=== PATIENT | male | born 1965 | race Caucasian/White ===

== ENCOUNTER → 2016-07-26 | Outpatient (CLI) | payer BC ==
--- NOTE | 2016-07-26 15:49 | XR ---
EXAMINATION TYPE: XR hand complete RT DATE OF EXAM: 07/26/2016 3:44 PM COMPARISON: NONE HISTORY: Posttraumatic osteoarthritis chronic pain third metacarpal phalangeal joint TECHNIQUE: 3 views right hand FINDINGS: There is narrowing of the third metacarpal phalangeal joint space. An acute fracture is not identified. Some mild soft tissue swelling may be over the metacarpals. IMPRESSION: 1. Degenerative joint changes third metacarpal phalangeal joint space.
[2016-07-26 15:59] LABS: Basophils % (A) 0 %; CH 32.4; CHCM 33.8; Eosinophils # (A) 0.1 k/uL (0-0.7); Eosinophils % (A) 1 %; HCT 49.8 % (39.0-53.0); HDW 2.04; HGB 16.5 gm/dL (13.0-17.5); Luc # (Auto) 0.23; Luc % (Auto) 2; Lymphocytes # (A) 1.8 k/uL (1.0-4.8); Lymphocytes % (A) 18 %; MCH 31.9 pg (25.0-35.0); MCHC 33.1 g/dL (31.0-37.0); MCV 96.2 fL (80.0-100.0); Mean Platelet Volume 6.3; Monocytes # (A) 0.6 k/uL (0-1.0); Monocytes % (A) 6 %; Neutrophils # (A) 7.1 k/uL (1.3-7.7); Neutrophils % (A) 73 %; RBC 5.17 m/uL (4.30-5.90); RDW 13.4 % (11.5-15.5); WBC 9.8 k/uL (3.8-10.6); WBC (Perox) 9.94
[2016-07-26 16:12] LABS: ALT 45 U/L (21-72); AST 39 U/L (17-59); Alkaline Phosphatase 117 U/L (38-126); Anion Gap 10 mmol/L; Blood Urea Nitrogen 11 mg/dL (9-20); Carbon Dioxide 24 mmol/L (22-30); Chloride 106 mmol/L (98-107); Glucose 91 mg/dL (74-99); Non-African American GFR(MDRD) >60 (>60 ml/min/1.73 sqM); Potassium 4.6 mmol/L (3.5-5.1); Sodium 140 mmol/L (137-145); Total Bilirubin 0.7 mg/dL (0.2-1.3); Total Protein 7.5 g/dL (6.3-8.2)
[2016-07-26 16:15] LABS: Rheumatoid Factor, Qnt <9 IU/mL (<12)
[2016-07-26 17:59] LABS: Erythrocyte Sedimentation Rate 2 mm/hr (0-15)
== END | disposition home or self-care (01) ==
LOC: RADXRMAIN 15:20
PROVIDERS: ATTEND Internal Medicine
DX: M25.841 Other specified joint disorders, right hand (principal)
CPT/HCPCS: 80053; 84550; 85025; 85652; 86038; 86200; 86431

== ENCOUNTER → 2017-06-29 | Outpatient (CLI) | payer OTHER ==
--- NOTE | 2017-06-29 14:51 | XR ---
EXAMINATION TYPE: XR shoulder complete RT DATE OF EXAM: 06/29/2017 COMPARISON: NONE HISTORY: Pain TECHNIQUE: Shoulder examined in 3 views. FINDINGS: The humeral head articulates with the glenoid. The acromio-clavicular junction is normal. There is some downward sloping of the acromion which could contribute to impingement syndrome. No acute fractures or dislocations are evident. A follow up study can be performed 7-10 days from acute trauma for continued pain. IMPRESSION: 1. Normal three-view right Shoulder
== END | disposition home or self-care (01) ==
LOC: RADXRMAIN 14:23
PROVIDERS: ATTEND Emergency Medicine
DX: S43.401A Unspecified sprain of right shoulder joint, initial encounter (principal)

== ENCOUNTER → 2017-08-08 | Outpatient (CLI) | payer BC ==
[2017-08-08 07:40] LABS: Basophils # (A) 0.1 k/uL (0-0.2); Basophils % (A) 1 %; Eosinophils # (A) 0.2 k/uL (0-0.7); Eosinophils % (A) 3 %; HCT 47.8 % (39.0-53.0); Lymphocytes # (A) 1.9 k/uL (1.0-4.8); Lymphocytes % (A) 28 %; MCH 31.8 pg (25.0-35.0); MCHC 33.4 g/dL (31.0-37.0); MCV 95.2 fL (80.0-100.0); Mean Platelet Volume 6.4; Monocytes # (A) 0.5 k/uL (0-1.0); Monocytes % (A) 8 %; Neutrophils # (A) 3.8 k/uL (1.3-7.7); Neutrophils % (A) 58 %; Platelet Count 292 k/uL (150-450); RBC 5.03 m/uL (4.30-5.90); RDW 13.2 % (11.5-15.5); WBC 6.7 k/uL (3.8-10.6)
[2017-08-08 07:49] LABS: Appearance,Urine Clear (Clear); Bilirubin,Urine Negative (Negative); Blood,Urine Negative (Negative); Color,Urine Yellow; Glucose,Urine (UA) Negative (Negative); Ketones,Urine Negative (Negative); Leukocyte Esterase,Urine Negative (Negative); Nitrite,Urine Negative (Negative); Protein,Urine Negative (Negative); Specific Gravity,Urine 1.017 (1.001-1.035); Urobilinogen,Urine <2.0 mg/dL (<2.0)
--- NOTE | 2017-08-08 07:53 | US ---
EXAMINATION TYPE: US abdomen complete DATE OF EXAM: 08/08/2017 COMPARISON: NONE CLINICAL HISTORY: K83.9 Disease of biliary tract, unspecified. Indigestion issues EXAM MEASUREMENTS: Liver Length: 17.4 cm Gallbladder Wall: 0.2 cm CBD: 0.6 cm Spleen: 10.6 cm Right Kidney: 10.6 x 4.3 x 4.3 cm Left Kidney: 10.4 x 4.9 x 5.7 cm Pancreas: limited views due to bowel gas Liver: Hepatic echotexture is hyperechoic with poor visualization of the portal triads. This most com monly relates to hepatic steatosis and limits evaluation for underlying hepatic masses. Gallbladder: wnl Evidence for sonographic Shaw's sign: no CBD: wnl Spleen: wnl Right Kidney: wnl Left Kidney: wnl Upper IVC: wnl Abd Aorta: wnl The intrahepatic portion of the IVC and proximal abdominal aorta are within normal limits. There is no evidence of cholelithiasis. Common bile duct is unremarkable. The visualized portions of the blackburn creas are homogenous. The spleen is unremarkable. Kidneys are symmetric and free of hydronephrosis. No renal lesions are seen. IMPRESSION: 1. Hyperechoic hepatic echotexture most commonly related to hepatic steatosis. 2. No sonographic evidence of acute cholecystitis or cholelithiasis.
[2017-08-08 09:18] LABS: Albumin 4.2 g/dL (3.5-5.0); Chloride 105 mmol/L (98-107); Cholesterol 202 mg/dL (<200); Glucose 90 mg/dL (74-99); Total Protein 6.9 g/dL (6.3-8.2); Triglycerides 132 mg/dL (<150); Uric Acid 5.4 mg/dL (3.5-8.5)
[2017-08-08 09:19] LABS: ALT 52 U/L (21-72); AST 45 U/L (17-59); Alkaline Phosphatase 83 U/L (38-126); Anion Gap 7 mmol/L; Blood Urea Nitrogen 15 mg/dL (9-20); Calcium 9.9 mg/dL (8.4-10.2); Carbon Dioxide 29 mmol/L (22-30); Creatine Kinase 137 U/L (55-170); HDL Cholesterol 67 mg/dL (40-60); LDL Cholesterol,Calculated 109 mg/dL (0-99); Sodium 141 mmol/L (137-145); Total Bilirubin 0.5 mg/dL (0.2-1.3)
[2017-08-08 09:34] LABS: T4, Free (Free Thyroxine) 0.89 ng/dL (0.78-2.19)
[2017-08-08 09:48] LABS: Prostate Specific Antigen 0.38 ng/mL (0.00-4.00)
[2017-08-08 11:31] LABS: Hemoglobin A1C 5.4 % (4.0-6.0)
== END | disposition home or self-care (01) ==
LOC: RADUSWWP 06:55
PROVIDERS: ATTEND Internal Medicine
DX: K76.89 Other specified diseases of liver (principal); M19.041 Primary osteoarthritis, right hand; F32.89 Other specified depressive episodes; N40.0 Benign prostatic hyperplasia without lower urinary tract symptoms
CPT/HCPCS: 36415; 76700; 80053; 80061; 81003; 82306; 82550; 83036; 84153; 84439; 84443; 84550; 85025

== ENCOUNTER 2017-08-16 06:56 | Day surgery (SDC) | payer BC ==
[2017-08-14 14:17] VITALS: BMI 27.4
[2017-08-16 07:29] VITALS: RESP 16; TEMP 97.5
[2017-08-16] MEDS ORDERED: LIDOCAINE 1% 20 ML VIAL (10MG/ML) FOR IV START INTRADERMA ONE (07:41)
[2017-08-16] MEDS: LACTATED RINGERS 1,000 ML IV SCH ×2 (07:41→08:20)
[2017-08-16] MEDS ORDERED: PROPOFOL 10 MG/ML 20 ML VIAL IV ONE (08:19)
--- NOTE | 2017-08-16 08:44 | P.PCN ---
Date of Procedure: 08/16/17 Procedure(s) Performed: BRIEF HISTORY: Patient is a 52-year-old pleasant white male, scheduled for an elective colonoscopy as a part of screening for colon neoplasia. PROCEDURE PERFORMED: Colonoscopy. PREOPERATIVE DIAGNOSIS: Screening for colon cancer. IV sedation per Anesthesia. PROCEDURE: After informed consent was obtained, the patient, was brought into the endoscopy unit. IV sedation was administered by Anesthesia under continuous monitoring. Digital rectal examination was normal. Initially the Olympus CF- 160 flexible video colonoscope was then inserted in the rectum, gradually advanced into the cecum without any difficulty. Careful examination was performed as the scope was gradually being withdrawn. Ileocecal valve and the appendiceal orifice were visualized and appeared normal. Prep was excellent. Mucosa of the cecum, ascending colon, transverse colon, descending colon, sigmoid colon, and rectum appeared normal. Scattered sigmoid diverticulosis seen. Retroflexion was performed in the rectum and no lesions were seen. The patient tolerated the procedure well. IMPRESSION: Normal-appearing colon from rectum to cecum with no evidence of colorectal neoplasia. Scattered sigmoid diverticulosis. RECOMMENDATIONS: Findings of this examination were discussed with the patient as well as her family. He was advised to have a repeat screening colonoscopy in 10 years.
[2017-08-16 09:20] VITALS: BP 133/81; PULSE 61
== END 2017-08-16 09:30 | disposition home or self-care (01) ==
LOC: ORWHC2ENDO 06:56
PROVIDERS: ATTEND Internal Medicine Gastroenterology
DX: Z12.11 Encounter for screening for malignant neoplasm of colon (principal); K57.30 Diverticulosis of large intestine without perforation or abscess without bleeding; F17.210 Nicotine dependence, cigarettes, uncomplicated; F41.9 Anxiety disorder, unspecified; Z79.899 Other long term (current) drug therapy
CPT/HCPCS: 45378; J2704

== ENCOUNTER 2019-10-23 11:22 | Emergency (ER) | payer BC ==
[2019-10-23 11:27] VITALS: BP 153/89; PULSE 101; RESP 18; TEMP 98.5
[2019-10-23] MEDS ORDERED: DIPH,PERTUS(ACELL)TETVAC-LF 0.5 ML VIAL IM ONE (11:32)
[2019-10-23] MEDS ORDERED: LIDOCAINE 1% INJ 10MG/ML (20 ML MDV) SQ ONE (11:32)
--- NOTE | 2019-10-23 12:20 | ED ---
Wound/Laceration HPI - General Chief Complaint: Wound/Laceration Stated Complaint: leg lac Time Seen by Provider: 10/23/19 11:28 Source: patient Mode of arrival: ambulatory Limitations: no limitations - History of Present Illness Initial Comments: 54-year-old male presented for left anterior knee laceration. Patient states he gently touched his knee on accident with a chainsaw. He states he just nicked the skin. Patient states that the limitations range of motion and thinks it appears superficial however the laceration would not stop bleeding and he presented for possible suture repair. Patient states he is unsure of his last tetanus. He denies any numbness tingling or loss of sensation coolness or pallor chest a falls or other direct trauma. Review systems negative upon arrival patient appears well bleeding controlled. - Related Data Home Medications Medication Instructions Recorded Confirmed ALPRAZolam 0.25 mg PO DAILY PRN 01/30/15 08/16/17 Allergies Allergy/AdvReac Type Severity Reaction Status Date / Time No Known Allergies Allergy Verified 10/23/19 11:26 Review of Systems ROS Statement: Those systems with pertinent positive or pertinent negative responses have been documented in the HPI. ROS Other: All systems not noted in ROS Statement are negative. Past Medical History Past Medical History: No Reported History Additional Past Medical History / Comment(s): IRRITABLE BOWEL History of Any Multi-Drug Resistant Organisms: None Reported Past Surgical History: Orthopedic Surgery Additional Past Surgical History / Comment(s): left rotator cuff Past Anesthesia/Blood Transfusion Reactions: No Reported Reaction Past Psychological History: Anxiety, Depression Smoking Status: Current every day smoker Past Alcohol Use History: Daily Past Drug Use History: None Reported - Past Family History Mother Family Medical History: No Reported History General Exam - General Exam Comments Initial Comments: General: The patient is awake and alert, in no distress, and does not appear acutely ill. Eye: Pupils are equal, round and reactive to light, extra-ocular movements are intact. No nystagmus. There is normal conjunctiva bilaterally. No signs of icterus. Cardiovascular: There is a regular rate and rhythm. No murmur, rub or gallop is appreciated. Respiratory: Lungs are clear to auscultation, respirations are non-labored, breath sounds are equal. No wheezes, stridor, rales, or rhonchi. Musculoskeletal: Normal ROM, no tenderness. Strength 5/5. Sensation intact. Pulses equal bilaterally 2+. Extensor mechanism intact. Neurological: A&O x 3. CN II-XII intact grossly, There are no obvious motor or sensory deficits. Coordination appears grossly intact. Speech is normal. Skin: Skin is warm and dry and no rashes. Upon inspection of the knee there is an irregular 3cm laceration of the left anterior knee. Bleeding controlled, Through dermis, no tendon exposure.No FB exposed. Psychiatric: Cooperative, appropriate mood & affect, normal judgment. Limitations: no limitations Course Vital Signs 10/23/19 11:24 Temperature 98.5 F Pulse Rate 101 H Respiratory 18 Rate Blood Pressure 153/89 O2 Sat by Pulse 97 Oximetry Procedures - Laceration Laceration #1 Consent Obtained: verbal consent Indication: laceration Site: buttock, lower extremity (left knee) Size (cm): 3 Description: irregular, clean Depth: simple, single layer Anesthetic Used: lidocaine 1% Anesthesia Technique: local infiltration Amount (mls): 2 Pre-repair: wound explored, irrigated extensively, deep structures intact Type of Sutures: nylon Size of Sutures: 4-0 Number of Sutures: 6 Technique: simple, interrupted Patient Tolerated Procedure: well, no complications Medical Decision Making - Medical Decision Making Tdap updated. laceration repaired. no tendon exposure, appears relatively superficial. irregular. irrigated, cleansed prior. Refused xr. wound care return for suture removal discussed bandage applied. Pt discharged appearing well after discussing case with Dr. Saucedo. Disposition Clinical Impression: Laceration of left knee Disposition: HOME SELF-CARE Condition: Good Instructions (If sedation given, give patient instructions): Care For Your Stitches (ED), Laceration (ED) Additional Instructions: Please use medication as discussed. Please follow-up for suture removal in 7-10 days. Please return to emergency room if the symptoms increase or worsen or for any other concerns. Is patient prescribed a controlled substance at d/c from ED?: No Referrals: Arlette Tena MD [Primary Care Provider] - 1-2 days Time of Disposition: 12:20
== END 2019-10-23 12:31 | disposition home or self-care (01) ==
LOC: EC 11:22
DX: S81.012A Laceration without foreign body, left knee, initial encounter (principal); F17.200 Nicotine dependence, unspecified, uncomplicated; Z23 Encounter for immunization; Z53.29 Procedure and treatment not carried out because of patient's decision for other reasons; W29.3XXA Contact with powered garden and outdoor hand tools and machinery, initial encounter
CPT/HCPCS: 99282; 12002; 90471; 90715; J2001

== ENCOUNTER → 2019-12-30 | Outpatient (CLI) | payer BC ==
--- NOTE | 2019-12-30 18:02 | CT ---
EXAMINATION TYPE: CT chest w con DATE OF EXAM: 12/30/2019 COMPARISON: CT chest 09/30/2015 HISTORY: Lung nodule, PVD. CT DLP: 432 mGycm Automated exposure control for dose reduction was used. CONTRAST: CT scan of the chest is performed with IV Contrast, patient injected with 100 mL of Isovue 300. FINDINGS: LUNGS: Mild right dependent atelectasis. Lungs are grossly clear. No concerning parenchymal mass or n odule identified. No pleural effusion. No pneumothorax. The tracheobronchial tree is patent. MEDIASTINUM/SOFT TISSUES: No axillary, hilar, or mediastinal lymphadenopathy greater than 1 cm. Cardi ac size is normal. No pericardial effusion. Calcified coronary artery disease. No thoracic aortic ane urysm. Mild calcified disease of the aortic arch. UPPER ABDOMEN: No adrenal nodule. OSSEOUS: Degenerative change of the thoracic spine. IMPRESSION: 1. Calcified coronary artery disease. 2. Mild calcified atherosclerotic disease of the thoracic aorta.
--- NOTE | 2020-01-01 12:16 | P.ARTDOP ---
Arterial Doppler LOWER EXTREMITY ARTERIAL DOPPLER: DATE OF SERVICE: 12/30/2019 Reason for study: Leg pain. Doppler waveforms: Multiphasic bilaterally throughout. Pulse volume recording: []. Pressure gradients: None. Ankle-brachial indices: Greater than 1 bilaterally. Toe brachial indices: 0.56 on the right, 0.62 on the left Impression: Normal study.
== END | disposition home or self-care (01) ==
LOC: RADUSWWP 14:06
PROVIDERS: ATTEND Internal Medicine
DX: I25.10 Atherosclerotic heart disease of native coronary artery without angina pectoris (principal); I70.0 Atherosclerosis of aorta; R91.8 Other nonspecific abnormal finding of lung field; I73.9 Peripheral vascular disease, unspecified
CPT/HCPCS: 93922; 71260; Q9967

== ENCOUNTER → 2020-01-15 | Outpatient (CLI) | payer BC ==
[~2020-01-15] MED LIST: REGADENOSON 0.4 MG/5 ML SYRINGE IV ONE
--- NOTE | 2020-01-15 13:44 | NM ---
EXAMINATION TYPE: NM stress lexiscan cardiolite DATE OF EXAM: 01/15/2020 COMPARISON: NONE HISTORY: Precordial chest pain and abnormal EKG TECHNIQUE: After the intravenous administration of 10.47 mCi Tc 99m Sestamibi - Cardiolite resting S PECT images acquired 85 minutes post injection. The patient received 0.4mg Lexiscan, 25.7 mCi Tc 99m Sestamibi - Stress images obtained [address] injection FINDINGS: Review of stress and rest SPECT images demonstrates decreased perfusion involving the inferior wall f elt to reflect attenuation artifact versus remote insult. No evidence for stress-induced ischemia. Ga pat analysis shows normal wall motion with an estimated left ventricular ejection fraction of 63 %. IMPRESSION: No scintigraphic evidence for reversible ischemia.
--- NOTE | 2020-01-15 14:41 | EST ---
EXERCISE STRESS AGE: 54 SEX: M HT: 65 WT: 150 lbs. PROTOCOL: Lexiscan Cardiolite STAGE: DURATION OF EXERCISE: HEART RATE REST: 72 BLOOD PRESSURE REST: 140/87 MAXIMUM HEART RATE ACHIEVED: 100 MAXIMUM BLOOD PRESSURE: 140/87 85% MPHR: 141 100% MPHR: 166 METS: INDICATIONS: Coronary artery disease. CLINICAL INFORMATION: Baseline rhythm is sinus mechanism, rate 72, normal axis and intervals. Normal echocardiogram. Baseline blood pressure 140/87 mmHg. Patient received injection of Lexiscan. Electrocardiograph monitoring revealed no evidence of diagnostic ischemic ST deviation. Cardiolite was injected per protocol. CONCLUSION: 1. Nondiagnostic electrocardiograph stress testing. 2. Nuclear images will be reported separately. MMODL / IJN: [id number] /
== END | disposition home or self-care (01) ==
LOC: RADNMMAIN 08:32
PROVIDERS: ATTEND Internal Medicine
DX: I25.84 Coronary atherosclerosis due to calcified coronary lesion (principal)
CPT/HCPCS: 93017; 78452; A9500

== ENCOUNTER → 2020-03-12 | Outpatient (CLI) | payer BC ==
[2020-03-12 11:44] LABS: Glucose 2 Hour 166 mg/dL
[2020-03-12 12:00] LABS: Chol/HDL Ratio 2.31
[2020-03-12 16:12] LABS: Hemoglobin A1C 5.3 % (4.0-6.0)
== END | disposition home or self-care (01) ==
LOC: LABWHC1 07:44
PROVIDERS: ATTEND Internal Medicine
DX: E78.2 Mixed hyperlipidemia (principal); E16.2 Hypoglycemia, unspecified
CPT/HCPCS: 36415; 80061; 82941; 82947; 82950; 83036; 84450; 84460; 84681

== ENCOUNTER → 2020-05-18 | Outpatient (CLI) | payer BC ==
--- NOTE | 2020-05-18 15:37 | XR ---
EXAMINATION TYPE: XR shoulder complete RT DATE OF EXAM: 05/18/2020 Comparison: 06/29/2017 Clinical History: 55-year-old male M25.511. Findings: Mild degenerative change at the AC joint with marginal spurring. Subacromial space is preserved thoug h there is irregularity and some rounded contour of the greater tuberosity. Mild marginal spurring at the glenohumeral joint. No acute fracture, subluxation, or dislocation. Impression: Bony irregularity and some rounded contour to the greater tuberosity suggests underlying chronic rota tor cuff tendinopathy. Underlying rotator cuff tear not excluded and MRI can further evaluate as davey cated. Mild AC joint OA. Very mild degenerative spurring at the glenohumeral joint.
== END | disposition home or self-care (01) ==
LOC: RAD 15:15
PROVIDERS: ATTEND Internal Medicine
DX: M19.011 Primary osteoarthritis, right shoulder (principal); M25.711 Osteophyte, right shoulder; M25.811 Other specified joint disorders, right shoulder

== ENCOUNTER → 2020-06-10 | Outpatient (CLI) | payer BC ==
--- NOTE | 2020-06-11 03:40 | CT ---
EXAMINATION TYPE: CT abdomen pelvis wo con DATE OF EXAM: 06/10/2020 COMPARISON: None HISTORY: Kidney stone, pain bilaterally. CT DLP: 606 mGycm Automated exposure control for dose reduction was used. Images were obtained from the diaphragm to the floor the pelvis without contrast. FINDINGS: Lung bases are clear. There is no pleural effusion. Heart size is normal. There is no pericardial eff usion. Liver spleen pancreas stomach gallbladder appear intact. Bile ducts are not dilated. There is no adrenal mass. Kidneys have normal size. There is no hydronephrosis. Ureters are not dilat ed. There are calcifications in the left kidney and most of these are vascular. There is 1 mm calculu s lateral left kidney. There is 2 mm calculus interpolar left kidney. There is 1 mm calculus posterio r right kidney. There is no retroperitoneal adenopathy. There is atherosclerotic vascular calcificati on. Bladder distends smoothly. There is no inguinal hernia. There is no free fluid in the pelvis. The re is no sign of a pelvic mass. Appendix is inferior and appears normal. There is no mesenteric edema. There is no ascites or free air. There is no bowel obstruction. Lumbar vertebra have normal alignment. There is mild narrowing of L4-5 and L5-S1 disc spaces. There i s spur formation of the endplates. Facet joints are intact. Bony pelvis is intact. The hip joints are intact. IMPRESSION: Mild atherosclerotic vascular disease. Small renal calculi. No evidence of renal obstruction.
== END | disposition home or self-care (01) ==
LOC: RADCTMAIN 16:49
PROVIDERS: ATTEND Internal Medicine
DX: N20.0 Calculus of kidney (principal)
CPT/HCPCS: 74176

== ENCOUNTER → 2020-06-30 | Outpatient (CLI) | payer BC ==
--- NOTE | 2020-06-30 16:20 | MR ---
EXAMINATION TYPE: MR shoulder RT wo con DATE OF EXAM: 06/30/2020 COMPARISON: Plain film 05/18/2020 HISTORY: Right shoulder pain. TECHNIQUE: Multiplanar, multisequence imaging of the right shoulder is performed without contrast. FINDINGS: Rotator Cuff: Complete rotator cuff tear is present, supraspinatus tendon is retracted to the level o f the acromion. Infraspinatus tendon shows irregular appearance and is frayed near its insertion site , is abnormal thickening, abnormal increased signal. Fluid signal is present along the musculotendino us junction of subscapularis shows a normal insertion, teres minor is intact. Acromioclavicular Joint: Arthropathy changes present. There is a distal acromial spur. Glenohumeral Joint: Shoulder is high riding, some arthropathy changes present. Labrum: There is some increased signal in the superior labrum possibly due to some degenerative cates e Biceps Tendon: The long head of biceps is in normal location within bicipital groove, there is some f luid present along the long head of biceps tendon. Bone marrow signal: Pseudocysts are present within the humeral head Other: There is fluid in the subacromial subdeltoid bursa IMPRESSION: Supraspinatus tendon tear with retraction, distal acromial spur, additional findings above.
== END | disposition home or self-care (01) ==
LOC: RADMRIMAIN 12:31
PROVIDERS: ATTEND Orthopaedic Surgery
DX: S46.011A Strain of muscle(s) and tendon(s) of the rotator cuff of right shoulder, initial encounter (principal); M67.813 Other specified disorders of tendon, right shoulder; M12.811 Other specific arthropathies, not elsewhere classified, right shoulder; M25.811 Other specified joint disorders, right shoulder; M25.411 Effusion, right shoulder; R93.6 Abnormal findings on diagnostic imaging of limbs

== ENCOUNTER → 2020-08-10 | Outpatient (CLI) | payer BC ==
[2020-08-10 16:12] LABS: Basophils % (A) 1 %; Eosinophils # (A) 0.1 k/uL (0-0.7); Eosinophils % (A) 2 %; HGB 14.7 gm/dL (13.0-17.5); Lymphocytes # (A) 1.7 k/uL (1.0-4.8); Lymphocytes % (A) 25 %; MCH 32.8 pg (25.0-35.0); MCHC 34.1 g/dL (31.0-37.0); MCV 96.1 fL (80.0-100.0); Mean Platelet Volume 6.4; Monocytes # (A) 0.6 k/uL (0-1.0); Monocytes % (A) 9 %; Neutrophils % (A) 61 %; Platelet Count 251 k/uL (150-450); RBC 4.47 m/uL (4.30-5.90); RDW 12.8 % (11.5-15.5); WBC 6.5 k/uL (3.8-10.6)
[2020-08-10 16:16] LABS: Potassium 4.3 mmol/L (3.5-5.1)
== END | disposition home or self-care (01) ==
LOC: LABPAT 11:48
PROVIDERS: ATTEND Orthopaedic Surgery
DX: Z01.812 Encounter for preprocedural laboratory examination (principal); M75.41 Impingement syndrome of right shoulder
CPT/HCPCS: 80051; 85025; 93005

== ENCOUNTER 2020-08-28 06:01 | Day surgery (SDC) | payer BC ==
[2020-08-24 13:12] VITALS: BMI 26.6
--- NOTE | 2020-08-27 13:34 | HP ---
HISTORY AND PHYSICAL CHIEF COMPLAINT: Right shoulder pain. 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 He was hanging drywall and he fell injuring his right shoulder at home. He has been having pain and weakness ever since. He is having night symptoms. He denies previous problems. PAST MEDICAL HISTORY: Significant for depression, COPD. PAST SURGICAL HISTORY: Significant for hydrocele repair. CURRENT MEDICATION: Xanax. ALLERGIES: He denies drug allergies. FAMILY HISTORY: Significant for heart disease and cancer. SOCIAL HISTORY: Significant for 2 pack per day tobacco use in addition to heavy alcohol use. REVIEW OF SYSTEMS: Sixteen-point review of systems otherwise reviewed and is noncontributory. PHYSICAL EXAMINATION: On examination, the patient is approximately 5 feet 5 inches, 157 pounds of mesomorphic habitus. HEENT exam is nonfocal. Neck is supple. On examination of the right shoulder, he is tender about the anterior subacromial space. He has mild subacromial crepitus. Active range of motion forward elevation 160 degrees, external rotation with arm at side 60 degrees, internal rotation to L1. Motor strength 5 minus over 5 for abduction and external rotation. Impingement test, Neer test, and Speed test are positive. His distal neurovascular exam appears intact in the right upper extremity. MRI report right shoulder from 06/30/2020 shows a large rotator cuff tear with retraction past the acromion. IMPRESSION: 1. Right large rotator cuff [id number]. 2. History of chronic obstructive pulmonary disease. RECOMMENDATIONS: I talked to the patient at length regarding his condition and treatment options. At this point, he is having significant pain and weakness after this acute injury. After thorough discussion, he opts to proceed with surgery. We will plan to proceed with arthroscopic evaluation with probable subacromial decompression, rotator cuff debridement versus repair, possible biceps tenotomy. Risks and benefits were discussed at length in layman's terms. We will likely perform that as an outpatient procedure. MMODL / IJN: [id number] /
[~2020-08-28 06:01] MED LIST changes: +DEXAMETHASONE SOD PHOSPHATE 4 MG/ML 1 ML VIAL IV ONE; +LACTATED RINGERS 1,000 ML IV SCH; +MIDAZOLAM 2 MG/2 ML VIAL IV PRN; +ONDANSETRON 4 MG/2 ML VIAL IVP ONE; -REGADENOSON 0.4 MG/5 ML SYRINGE IV ONE; +SCOPOLAMINE 1.5MG/72HR PATCH TRANSDERM ONE
[2020-08-28] MEDS ORDERED: LIDOCAINE 1% (10MG/ML) FOR IV START INTRADERMA ONE (06:35)
[2020-08-28 06:56] VITALS: RESP 16
[2020-08-28] MEDS ORDERED: fentaNYL (PF) 50 MCG/ML 2 ML AMP IV ONE (06:58)
[2020-08-28] MEDS ORDERED: HYDROmorphone 0.5 MG/0.5 ML SYRINGE IVP PRN (07:00)
[2020-08-28] MEDS ORDERED: DEXAMETHASONE SOD PHOSPHATE 4 MG/ML 1 ML VIAL ONE (07:41)
[2020-08-28] MEDS ORDERED: PROPOFOL 10 MG/ML 20 ML VIAL IV ONE (07:41)
[2020-08-28] MEDS ORDERED: fentaNYL (PF) 50 MCG/ML 2 ML AMP ONE (07:41)
[2020-08-28] MEDS ORDERED: MIDAZOLAM 2 MG/2 ML VIAL ONE (07:41)
[2020-08-28] MEDS ORDERED: SUCCINYLCHOLINE CHLORIDE 100 MG/5 ML SYR IV ONE (07:41)
[2020-08-28] MEDS ORDERED: LIDOCAINE 1% INJ 10MG/ML (20 ML MDV) ONE (07:41)
[2020-08-28] MEDS ORDERED: SODIUM CHLORIDE 0.9% 100 ML BAG ONE (07:41)
[2020-08-28] MEDS ORDERED: ceFAZolin 1,000 MG VIAL ONE (07:41)
[2020-08-28] MEDS ORDERED: ROPIVACAINE 5 MG/ML 30 ML VIAL ONE (07:41)
[2020-08-28] MEDS ORDERED: ePHEDrine SULFATE/0.9% NACL/PF 50 MG/5 ML SYRINGE IV ONE (07:41)
[2020-08-28] MEDS ORDERED: EPINEPHrine (PF) 1 ML in SODIUM CHLORIDE 0.9% IRRIGATIO 3,000 ML IRRIGATION ONE ×8 (07:45)
[2020-08-28] MEDS ORDERED: LACTATED RINGERS 1,000 ML IV ONE (08:35)
--- NOTE | 2020-08-28 08:53 | P.ANPRN ---
Procedure Note - Anesthesia - Nerve Block Performed Right Interscalene Single Time Out Performed: Yes ([id number]) Date of Procedure: 08/28/20 Procedure Start Time: 06:58 Procedure Stop Time: 07:04 Location of Patient: PreOp Indication: Acute Post-Operative Pain, Requested by Surgeon Specifically requested for management of pain by : Ramon Leon Sedation Type: Sedate with meaningful contact maintained Preparation: Sterile Prep Position: Supine Catheter: None Needle Types: Pajunk Needle Gauge: 21 Ultrasound used to visualize needle placement: Yes Ultrasound used to observe medication spread: Yes Injectate: 0.5% Ropivacaine (see comment for volume) (30cc +Decadron 4mg) Blood Aspirated: No Pain Paresthesia on Injection Noted: No Resistance on Injection: Normal Image Stored and Saved: Yes Events: Uneventful and Well Tolerated
--- NOTE | 2020-08-28 09:21 | P.OP ---
Date of Procedure: 08/28/20 Preoperative Diagnosis: Acutesymptomatic right rotator cuff tear Postoperative Diagnosis: The rotator cuff tear, rupture proximal biceps was superior labral tear Procedure(s) Performed: The arthroscopic subacromial decompression, rotator cuff repair, superior labral debridement Implants: Arthrex 4.75 mm swivel lock anchorx3, 5.5 mm swivel lock anchor 1 Anesthesia: [facility], lanette Surgeon: Ramon Leon Chocolate Dipper #1: Miguelangel Reyes Assistant #2: Emile Stevens Pathology: none sent Condition: stable Disposition: PACU Indications for Procedure: The patient's a 55-year-old male presents with persistent/progressive right shou lder pain and weakness after an acute injury despite attempted conservative measures. A discussion of the risks and benefits of operative intervention versus continued conservative measures was made with patient. He opted to proceed with surgery. Operative risks to include infection, neurovascular injury, development of blood clots, possible tendon rerupture, possible postoperative stiffness and need for subsequent procedures was discussed. Informed consent was obtained. Operative Findings: As below Description of Procedure: The patient was brought to the operating room, and after induction of general anesthesia was placed in a beachchair position. A preoperative interscalene block was placed for postoperative analgesia. I examined the right shoulder. There was no gross block to passive motion or gross glenohumeral instability. The right upper extremity was prepped and draped in normal fashion. The bony outlines the acromion, distal clavicle, and coracoid process were outlined with a skin marker. The glenohumeral joint was inflated with 50 mL of saline utilizing a spinal needle from posterior approach. A posterior portal was made through a 5 mm skin incision 1 cm medial and inferior to the posterior lateral border time. A blunt trocar was used to easily into the joint. Diagnostic arthroscopy was performed. An anterior portal was made just lateral to the coracoid process entering the joint above the subscapularis tendon. The subscapularis tendon appeared to be intact. Anterior labrum was intact. The inferior recess was inspected. The posterior labrum was intact. The long head of biceps had previously been ruptured with a remnant remaining on the superior labrum. There was maceration of the labrum as well. This was debrided back to stable base with a motorized shaver. On inspection the rotator cuff[]. A lateral portal was made 2 centimeters inferior to the anterior lateral border of the acromion. The rotator cuff was then mobilized with a traction suture. This was then easily brought back to the greater tuberosity. The soft tissue on the undersurface of the acromion was debrided with a motorized shaver and electrocautery clearly defining the anterior medial and lateral borders as well as the distal clavicle. An anterior inferior acromioplasty was performed with a motorized minh starting anterolateral, then extending this posteriorly, then extending this medially. I converted to a flat acromion and this was verified in the posterior and lateral viewing portals. The greater tuberosity was lightly decorticating with a shaver down to a bleeding bony surface. An accessory superior lateral portals made just off the lateral edge of the acromion for anchor placement. 2 anchors were then placed just off the articular surface with the appropriate starting awl. 4.75 mm anchors preloaded with #2 fiber tape were placed. Good purchase was obtained. These fiber tapes were then passed the rotator cuff with a scorpion suture passer. A lateral row was created crisscrossing these tapes. One 4.75 mm swivel lock anchor and one 5.5 mm swivel lock anchor were placed with the appropriate suture tensioning. Good purchase was obtained. Final arthroscopic view showed adequate compression at the footprint. The arthroscope was then removed. The portals were closed with simple 3-0 nylon sutures. A sterile dressing was applied in addition to an abductor brace. The patient was then awoken from general anesthesia and transferred to recovery room in good condition. Blood loss was estimated at 10 mL. No complications were incurred. Sponge and needle counts were correct in the case. Jesus GOULD assisted and the major components of the case to include arm positioning, anchor placement, and rotator cuff repair.
[2020-08-28 09:27] VITALS: TEMP 97.2
[2020-08-28 10:35] VITALS: BP 123/72; PULSE 91
== END 2020-08-28 10:57 | disposition home or self-care (01) ==
LOC: OR 06:01
PROVIDERS: ATTEND Orthopaedic Surgery
DX: S46.011A Strain of muscle(s) and tendon(s) of the rotator cuff of right shoulder, initial encounter (principal); S46.111A Strain of muscle, fascia and tendon of long head of biceps, right arm, initial encounter; S43.431A Superior glenoid labrum lesion of right shoulder, initial encounter; F32.9 Major depressive disorder, single episode, unspecified; J44.9 Chronic obstructive pulmonary disease, unspecified; F17.210 Nicotine dependence, cigarettes, uncomplicated; G47.33 Obstructive sleep apnea (adult) (pediatric); Z98.890 Other specified postprocedural states; Z79.899 Other long term (current) drug therapy; Z86.79 Personal history of other diseases of the circulatory system; Z82.49 Family history of ischemic heart disease and other diseases of the circulatory system; Z80.9 Family history of malignant neoplasm, unspecified; W19.XXXA Unspecified fall, initial encounter; Y93.H3 Activity, building and construction; Y92.019 Unspecified place in single-family (private) house as the place of occurrence of the external cause
CPT/HCPCS: 64415; 76942; 29827; 29826; C1713 ×3; C1894; J2250; J1100; J2405; J0690; J0171; J2001; J3010; J2795; J0330; J2704

== ENCOUNTER 2022-01-02 08:51 | Emergency (ER) | payer BC ==
[2022-01-02 08:59] VITALS: BP 148/84; PULSE 80; RESP 77; TEMP 98.1
[2022-01-02] MEDS ORDERED: FLUORESCEIN STRIPS 1 MG STRIP BOTH EYES ONE (09:01)
[2022-01-02] MEDS ORDERED: PROPARACAINE 0.5% OPHTH DROPS 15 ML BTL BOTH EYES STA (09:01)
--- NOTE | 2022-01-02 09:36 | ED ---
General Adult HPI - General Chief complaint: ENT Stated complaint: Eye Problems Time Seen by Provider: 01/02/22 09:01 Source: patient Mode of arrival: ambulatory Limitations: no limitations - History of Present Illness Initial comments: Dictation was produced using [employer] dictation software. please excuse any grammatical, word or spelling errors. Chief Complaint: 56-year-old male presents to perform body sensation in the right eye History of Present Illness: 56-year-old male who presents emergency department for foreign body sensation in the right eye. Patient states that he feels like it's in the medial side of the right upper eyelid. She noted watering and redness to the right eye. Patient has history of glaucoma. Patient has any vision changes patient tried to irrigate his eye prior to arrival. The ROS documented in this emergency department record has been reviewed and confirmed by me. Those systems with pertinent positive or negative responses have been documented in the HPI. All other systems are other negative and/or noncontributory. PHYSICAL EXAM: General Impression: Alert and oriented x3, not in acute distress HEENT: Normocephalic atraumatic, extra-ocular movements intact, pupils equal and reactive to light bilaterally, mucous membranes moist. Cardiovascular: Heart regular rate and rhythm Chest: Able to complete full sentences, no retractions, no tachypnea Musculoskeletal: Pulses present and equal in all extremities, no peripheral edema Motor: no focal deficits noted Neurological: CN II-XII grossly intact, no focal motor or sensory deficits noted Skin: Intact with no visualized rashes Psych: Normal affect and mood Ocular exam: Mild conjunctival injection, worsening testing does not show any obvious abrasions or corneal abnormalities, no stye or blepharitis, no foreign bodies ED course: 56-year-old male presents to the emergency department for foreign body sensation in the right eye. All signs upon arrival are within acceptable limits. Intraocular pressures are 18 to the right eye. Patient reports significant improvement with proparacaine drops. Visual acuity is normal. Pat ient will be given prescription for eyedrops and erythromycin ointment. Patient given outpatient referral to ophthalmology. - Related Data Home Medications Medication Instructions Recorded Confirmed ALPRAZolam 0.25 mg PO DAILY PRN 01/30/15 08/24/20 Previous Rx's Medication Instructions Recorded HYDROcodone/APAP 7.5-325MG [[place] 1 each PO Q6HR PRN #28 tab 04/09/21 7.5] Ibuprofen 600 mg PO Q8H #30 tab 08/28/20 Erythromycin Ophth Oint [Romycin 1 applic LEFT EYE DAILY #1 gm 01/02/22 Ophth Oint] Ofloxacin 0.3% Ophth Soln [Ocuflox 1 drops RIGHT EYE QID #5 ml 01/02/22 Ophth Soln] Allergies Allergy/AdvReac Type Severity Reaction Status Date / Time No Known Allergies Allergy Verified 01/02/22 08:58 Review of Systems ROS Statement: Those systems with pertinent positive or pertinent negative responses have been documented in the HPI. ROS Other: All systems not noted in ROS Statement are negative. Past Medical History Past Medical History: No Reported History, Hypertension Additional Past Medical History / Comment(s): IRRITABLE BOWEL History of Any Multi-Drug Resistant Organisms: None Reported Past Surgical History: Orthopedic Surgery Additional Past Surgical History / Comment(s): left rotator cuff Past Anesthesia/Blood Transfusion Reactions: No Reported Reaction Past Psychological History: Anxiety, Depression Smoking Status: Current every day smoker Past Alcohol Use History: Daily Past Drug Use History: None Reported - Past Family History Mother Family Medical History: No Reported History General Exam Limitations: no limitations Course Vital Signs 01/02/22 08:55 Temperature 98.1 F Pulse Rate 80 Respiratory 77 H Rate Blood Pressure 148/84 O2 Sat by Pulse 99 Oximetry Disposition Clinical Impression: Eye pain Disposition: HOME SELF-CARE Condition: Good Instructions (If sedation given, give patient instructions): Ear Foreign Body (ED) Prescriptions: Ofloxacin 0.3% Ophth Soln [Ocuflox Ophth Soln] 1 drops RIGHT EYE QID #5 ml Erythromycin Ophth Oint [Romycin Ophth Oint] 1 applic LEFT EYE DAILY #1 gm Is patient prescribed a controlled substance at d/c from ED?: No Referrals: Rohit Esquivel MD [STAFF PHYSICIAN] - 1-2 days Time of Disposition: 09:35
== END 2022-01-02 09:40 | disposition home or self-care (01) ==
LOC: EC 08:51
DX: H57.11 Ocular pain, right eye (principal); F17.200 Nicotine dependence, unspecified, uncomplicated

== ENCOUNTER → 2022-03-10 | Outpatient (CLI) | payer BC ==
--- NOTE | 2022-03-12 10:12 | CT ---
EXAMINATION TYPE: CT angio abd aorta w/Runoff CT DLP: 1442.8 mGycm, Automated exposure control for dose reduction was used. DATE OF EXAM: 03/10/2022 4:48 PM COMPARISON: None CLINICAL INDICATION:Male, 56 years old with history of I74.3 EMBOLISM AND THROMBOSIS OF ARTERIES, EMB OLISM AND THROMBOSIS OF ARTERIES TECHNIQUE: Multiple thin slice sub-millimeter images were obtained through the abdomen, pelvis, and l ower extremities after administration of contrast. 3-D reconstructed images and maximum intensity pr ojection images were obtained of the abdomen, pelvis, and lower extremities. CT Contrast: Contrast used:125ml mL of Isovue 370 with IV Contrast, Oral contrast used: None FINDINGS: CTA Abdomen and pelvis: The abdominal aorta does not demonstrate aneurysmal dilatation. Atherosclero tic plaquing is identified within the abdominal aorta. The origins of the superior mesenteric artery , renal arteries, inferior mesenteric artery, and celiac axis are patent. The common iliac arteries a re patent with mild to moderate atherosclerotic disease. The external iliac arteries are patent with moderate atherosclerosis. Distal portion of the right external iliac artery demonstrates area of sten osis with at least 50% stenosis image 144 series 5. CTA Lower extremities: Right: The common femoral and superficial femoral arteries are patent. There are scattered atheroscle rosis of the superficial femoral artery with some areas of at least 50% stenosis along the course. Th e popliteal artery is patent. Anterior and posterior tibial arteries as well as the peroneal artery a re patent. Anterior and posterior tibial arteries cross the ankle. Mild scattered atherosclerosis dis ease of the vessels of the leg. Left: The common femoral and superficial femoral arteries are patent. Scattered areas of at least 25- 50% stenosis along the course of the superficial femoral artery. Distal portion of the left superfici al femoral artery does demonstrate areas of at least 50-70% stenosis on image 305 series 5. Popliteal artery is patent. Anterior and posterior tibial arteries as well as the peroneal artery are patent. Anterior and posterior tibial arteries cross the ankle. Moderate atherosclerotic disease of the vesse ls of the leg. LOWER CHEST: No evidence of focal consolidation, pneumothorax or pleural effusion. LIVER: Unremarkable GALLBLADDER AND BILE DUCTS: Unremarkable. PANCREAS: Unremarkable. SPLEEN: Unremarkable. ADRENAL GLANDS: Unremarkable. KIDNEYS AND URETERS: No evidence of hydronephrosis or renal calculus. The ureters are unremarkable. PELVIS BLADDER: Unremarkable REPRODUCTIVE: Unremarkable. ABDOMEN & PELVIS STOMACH AND BOWEL: No evidence of bowel obstruction. PERITONEUM: No evidence of pneumoperitoneum or free fluid. VASCULATURE: No evidence of aortic aneurysm. MUSCULOSKELETAL: No acute osseous abnormalities severe multilevel disc degeneration changes are seen throughout the spine. There is retrolisthesis of L5 on S1.. LYMPH NODES: No gross evidence for lymphadenopathy. SOFT TISSUE/ABDOMINAL WALL: Unremarkable IMPRESSION 1. No evidence of vascular occlusion. 2. Moderate atherosclerotic disease involving abdominal aorta and lower extremity vasculature. * Scattered at least 50% stenosis involving the right external iliac artery and right superficial fe moral artery. * Scattered at least 50% stenosis involving the left superficial femoral artery with high-grade sten osis along the more distal portion with at least 50-70% stenosis. 3. At least two vessels are seen crossing the ankle joints.
== END | disposition home or self-care (01) ==
LOC: RADCTMAIN 15:09
PROVIDERS: ATTEND Surgery
DX: I74.3 Embolism and thrombosis of arteries of the lower extremities (principal); I70.213 Atherosclerosis of native arteries of extremities with intermittent claudication, bilateral legs
CPT/HCPCS: 75635; Q9967

== ENCOUNTER 2023-01-21 16:04 | Emergency (ER) | payer BC ==
[2023-01-21 16:16] VITALS: TEMP 98.1
[2023-01-21] MEDS ORDERED: ACET/COD 300 MG/30 MG STARTER PACK 6 TAB BTL PO STA (16:45)
[2023-01-21] MEDS ORDERED: Acetaminophen-Codeine 300-30mg TAB PO STA (16:45)
[2023-01-21] MEDS ORDERED: DIPH,PERTUS(ACELL)TETVAC-LF 0.5 ML VIAL IM ONE (16:45)
--- NOTE | 2023-01-21 17:26 | XR ---
EXAMINATION TYPE: XR foot complete RT, XR ankle complete RT DATE OF EXAM: 01/21/2023 5:11 PM INDICATION: Patient age:Male; 57 years old; Reason for study: pain; PHH. COMPARISON: None TECHNIQUE: The right foot and ankle was examined in the AP, oblique, and lateral projections. FINDINGS: No evidence of any acute osseous pathology. Mild soft tissue swelling of the ankle. Joints are prese rved. Ankle mortise is intact. No radiopaque foreign bodies. IMPRESSION: 1. No evidence of acute fracture. 2. Mild soft tissue swelling the ankle.
--- NOTE | 2023-01-21 17:41 | ED ---
General Adult HPI - General Chief complaint: Extremity Injury, Lower Stated complaint: R ankle injury Time Seen by Provider: 01/21/23 16:30 Source: patient, RN notes reviewed, old records reviewed Mode of arrival: ambulatory Limitations: no limitations - History of Present Illness Initial comments: Patient is a 57-year-old male who presents emergency Department complaining of a puncture wound to the inner right ankle. Parents in severe pain at the site shortly afterwards. He struck it with a irrigation device while he was moving it in his shed. It occurred prior to arrival. Unknown last tetanus. He presents over concern for possible traumatic injury to the ankle. No other symptoms. - Related Data Home Medications Medication Instructions Recorded Confirmed ALPRAZolam 0.25 mg PO DAILY PRN 01/30/15 08/24/20 Previous Rx's Medication Instructions Recorded HYDROcodone/APAP 7.5-325MG [[place] 1 each PO Q6HR PRN #28 tab 08/28/20 7.5] Ibuprofen 600 mg PO Q8H #30 tab 08/28/20 Erythromycin Ophth Oint [Romycin 1 applic LEFT EYE DAILY #1 gm 01/02/22 Ophth Oint] Ofloxacin 0.3% Ophth Soln [Ocuflox 1 drops RIGHT EYE QID #5 ml 01/02/22 Ophth Soln] Allergies Allergy/AdvReac Type Severity Reaction Status Date / Time No Known Allergies Allergy Verified 01/21/23 16:16 Review of Systems ROS Statement: Those systems with pertinent positive or pertinent negative responses have been documented in the HPI. Review of Systems: CONST: Denies fever EYES: Denies blurry vision ENT: Denies nasal congestion C/V: Denies Chest pain RESP: Denies shortness of breath GI: Denies abdominal pain : Denies dysuria SKIN: Endorses puncture wound over the medial right ankle. MSK: Endorses right ankle pain. NEURO: Denies headache ROS Other: All systems not noted in ROS Statement are negative. Past Medical History Past Medical History: Hypertension Additional Past Medical History / Comment(s): IRRITABLE BOWEL History of Any Multi-Drug Resistant Organisms: None Reported Past Surgical History: Orthopedic Surgery Additional Past Surgical History / Comment(s): left rotator cuff Past Anesthesia/Blood Transfusion Reactions: No Reported Reaction Past Psychological History: Anxiety, Depression Smoking Status: Current every day smoker Past Alcohol Use History: Daily Past Drug Use History: None Reported - Past Family History Mother Family Medical History: No Reported History General Exam - General Exam Comments Initial Comments: General: Appears in no acute distress. HEAD: Normal with no signs of head trauma. EYES: EOMI. ENT: Hearing grossly intact. RESPIRATORY: No respiratory distress. C/V: Regular rate and rhythm. ABD: Abdomen is nondistended. EXT: No obvious deformity. Tenderness palpation over the medial malleolus extending down into the hindfoot. No obvious deformities. Normal range of motion. Ambulatory. SKIN: Puncture wound over the medial malleolus of the right ankle. NEURO: Alert and oriented. Limitations: no limitations Course Vital Signs 01/21/23 01/21/23 16:13 17:52 Temperature 98.1 F Pulse Rate 89 74 Respiratory 20 18 Rate Blood Pressure 108/66 132/64 O2 Sat by Pulse 99 99 Oximetry Medical Decision Making - Medical Decision Making Was pt. sent in by a medical professional or institution (, PA, OPHTHALMIC MEDICAL ASSISTANT, urgent care, hospital, or [facility]...) When possible be specific @ -No Did you speak to anyone other than the patient for history (EMS, parent, family, police, friend...)? What history was obtained from this source @ -No Did you review nursing and triage notes (agree or disagree)? Why? @ -I reviewed and agree with nursing and triage notes Were old charts reviewed (outside hosp., previous admission, EMS record, old EKG, old radiological studies, urgent care reports/EKG's, [facility] records)? Report findings @ -No old charts were reviewed Differential Diagnosis (chest pain, altered mental status, abdominal pain women, abdominal pain men, vaginal bleeding, weakness, fever, dyspnea, syncope, headache, dizziness, GI bleed, back pain, seizure, CVA, palpatations, mental health, musculoskeletal)? @ -Differential Musculoskeletal Muscular strain, contusion, ligament sprain, fracture, arthritis, septic arthritis, bursitis, cellulitis, muscle spasm, nerve compression, DVT, arterial occlusion, herpes zoster, electrolyte abnormality, tumor.... This is not meant to be in all inclusive list EKG interpreted by me (3pts min.). @ -None done X-rays interpreted by me (1pt min.). @ -X-rays of the right ankle and foot negative for any obvious bony traumatic injury. CT interpreted by me (1pt min.). @ -None done U/S interpreted by me (1pt. min.). @ -None done What testing was considered but not performed or refused? (CT, X-rays, U/S, labs)? Why? @ -None What meds were considered but not given or refused? Why? @ -None Did you discuss the management of the patient with other professionals (professionals i.e. , PA, OPHTHALMIC MEDICAL ASSISTANT, lab, RT, psych nurse, health social work professor, inhalation therapy aide, teacher, landing signal officer, high risk case manager)? Give summary @ -No Was smoking cessation discussed for >3mins.? @ -No Was critical care preformed (if so, how long)? @ -No Were there social determinants of health that impacted care today? How? (Homelessness, low income, unemployed, alcoholism, drug addiction, transportation, low edu. Level, literacy, decrease access to med. care, nursing home, rehab)? @ -No Was there de-escalation of care discussed even if they declined (Discuss DNR or withdrawal of care, Hospice)? DNR status @ -No What co-morbidities impacted this encounter? (DM, HTN, Smoking, COPD, CAD, Cancer, CVA, ARF, Chemo, Hep., AIDS, mental health diagnosis, sleep apnea, morbid obesity)? @ -None Was patient admitted / discharged? Hospital course, mention meds given and route, prescriptions, significant lab abnormalities, going to OR and other pertinent info. @ -Based on the patient's presentation and physical exam, concern for possible injury of the right ankle. We will obtain x-rays. Tetanus updated. Given analgesia medications. Vital signs within acceptable limits. Exam unremarkable. X-rays negative for natruretic injury. I updated the patient. He'll be discharged home at this time. Strict return precautions discussed. Discussed keeping his puncture wound clean. I instructed the patient to follow up with their PCP in the next 1-3 days. I explained that the patient should return to the emergency department if they experience any worsening symptoms. Strict return precautions were discussed with the patient. The patient expressed understanding of these instructions. I answered all questions that the patient had. The patient was discharged home in good condition with their prescriptions and follow up information. Undiagnosed new problem with uncertain prognosis? @ -No Drug Therapy requiring intensive monitoring for toxicity (Heparin, Nitro, Insulin, Cardizem)? @ -No Were any procedures done? @ -No Diagnosis/symptom? @ -Contusion, abrasion, right ankle pain Acute, or Chronic, or Acute on Chronic? @ -Acute Uncomplicated (without systemic symptoms) or Complicated (systemic symptoms)? @ -Uncomplicated Side effects of treatment? @ -No Exacerbation, Progression, or Severe Exacerbation? @ -No Poses a threat to life or bodily function? How? (Chest pain, [place], [place], pneumonia, PE, COPD, DKA, ARF, appy, cholecystitis, CVA, Diverticulitis, Homicidal, Suicidal, threat to staff... and all critical care pts) @ -No Disposition Clinical Impression: Right ankle pain, Abrasion Disposition: HOME SELF-CARE Condition: Good Instructions (If sedation given, give patient instructions): Foot Contusion (ED) Is patient prescribed a controlled substance at d/c from ED?: No Referrals: Arlette Tena MD [Primary Care Provider] - 1-2 days Time of Disposition: 17:35
[2023-01-21 17:53] VITALS: BP 132/64; PULSE 74; RESP 18
== END 2023-01-21 17:53 | disposition home or self-care (01) ==
LOC: EC 16:04
DX: S91.031A Puncture wound without foreign body, right ankle, initial encounter (principal); I10 Essential (primary) hypertension; F41.9 Anxiety disorder, unspecified; F32.A Depression, unspecified; F17.200 Nicotine dependence, unspecified, uncomplicated; Z79.899 Other long term (current) drug therapy; Z23 Encounter for immunization; W22.8XXA Striking against or struck by other objects, initial encounter
CPT/HCPCS: 90471; 90715; 99283

== ENCOUNTER 2023-07-12 11:30 | Emergency (ER) | payer BC ==
[2023-07-12 12:06] VITALS: BP 110/69; PULSE 82; RESP 16; TEMP 98.1
--- NOTE | 2023-07-12 12:08 | XR ---
EXAMINATION TYPE: XR chest 2V DATE OF EXAM: 07/12/2023 COMPARISON: 01/27/2015. HISTORY: Pain. TECHNIQUE: Frontal and lateral views of the chest are obtained. FINDINGS: There is no focal air space opacity, pleural effusion, or pneumothorax seen. The cardiac silhouette size is within normal limits. The osseous structures are intact. IMPRESSION: No acute cardiopulmonary process.
--- NOTE | 2023-07-12 12:26 | ED ---
General Adult HPI - General Chief complaint: Chest Pain Stated complaint: Rib pain Time Seen by Provider: 07/12/23 11:58 Source: patient, RN notes reviewed, old records reviewed Mode of arrival: ambulatory Limitations: no limitations - History of Present Illness Initial comments: 58-year-old male presenting for evaluation of right lateral chest wall pain after fall which occurred on Monday. Patient states he fell onto a stool and onto the right lateral chest wall. No difficulty breathing but the patient does have pain with movement and pain with deep inspiration at the site. No abdominal pain. No central chest pain. - Related Data Home Medications Medication Instructions Recorded Confirmed ALPRAZolam 0.25 mg PO DAILY PRN 01/30/15 08/24/20 Previous Rx's Medication Instructions Recorded HYDROcodone/APAP 7.5-325MG [[place] 1 each PO Q6HR PRN #28 tab 08/28/20 7.5] Ibuprofen 600 mg PO Q8H #30 tab 08/28/20 Erythromycin Ophth Oint [Romycin 1 applic LEFT EYE DAILY #1 gm 01/02/22 Ophth Oint] Ofloxacin 0.3% Ophth Soln [Ocuflox 1 drops RIGHT EYE QID #5 ml 01/02/22 Ophth Soln] Allergies Allergy/AdvReac Type Severity Reaction Status Date / Time No Known Allergies Allergy Verified 01/21/23 16:16 Review of Systems ROS Statement: Those systems with pertinent positive or pertinent negative responses have been documented in the HPI. ROS Other: All systems not noted in ROS Statement are negative. Past Medical History Past Medical History: Hypertension Additional Past Medical History / Comment(s): IRRITABLE BOWEL History of Any Multi-Drug Resistant Organisms: None Reported Past Surgical History: Orthopedic Surgery Additional Past Surgical History / Comment(s): left rotator cuff Past Anesthesia/Blood Transfusion Reactions: No Reported Reaction Past Psychological History: Anxiety, Depression Smoking Status: Current every day smoker Past Alcohol Use History: Daily Past Drug Use History: None Reported - Past Family History Mother Family Medical History: No Reported History General Exam Limitations: no limitations General appearance: alert, in no apparent distress Head exam: Present: atraumatic, normocephalic Eye exam: Present: normal appearance, PERRL ENT exam: Present: normal exam Neck exam: Present: normal inspection. Absent: tenderness, meningismus Respiratory exam: Present: normal lung sounds bilaterally, chest wall tenderness (Tenderness over the right lower lateral rib cage no deformity, no crepitus, no ecchymosis). Absent: respiratory distress, wheezes Cardiovascular Exam: Present: regular rate, normal rhythm GI/Abdominal exam: Present: soft. Absent: distended, tenderness, guarding Extremities exam: Present: normal inspection Neurological exam: Present: alert, oriented X3 Psychiatric exam: Present: normal affect, normal mood Skin exam: Present: warm, dry, intact Course Vital Signs 07/12/23 11:44 Temperature 98.1 F Pulse Rate 82 Respiratory 16 Rate Blood Pressure 110/69 O2 Sat by Pulse 98 Oximetry Medical Decision Making - Medical Decision Making Was pt. sent in by a medical professional or institution (, [facility]NA, PICK UP AND DELIVERY DRIVER, urgent care, hospital, or [facility]...) When possible be specific @ -No Did you speak to anyone other than the patient for history (EMS, parent, family, police, friend...)? What history was obtained from this source @ -No Did you review nursing and triage notes (agree or disagree)? Why? @ -I reviewed and agree with nursing and triage notes Were old charts reviewed (outside hosp., previous admission, EMS record, old EKG, old radiological studies, urgent care reports/EKG's, [facility] records)? Report findings @ -No old charts were reviewed Differential Diagnosis (chest pain, altered mental status, abdominal pain women, abdominal pain men, vaginal bleeding, weakness, fever, dyspnea, syncope, headache, dizziness, GI bleed, back pain, seizure, CVA, palpatations, mental health, musculoskeletal)? @ -Pneumothorax, rib fracture, rib contusion EKG interpreted by me (3pts min.). @ -As above X-rays interpreted by me (1pt min.). @Chest x-ray negative for displaced rib fracture, negative for pneumothorax no acute findings. CT interpreted by me (1pt min.). @ -None done U/S interpreted by me (1pt. min.). @ -None done What testing was considered but not performed or refused? (CT, X-rays, U/S, labs)? Why? @ -None What meds were considered but not given or refused? Why? @ -None Did you discuss the management of the patient with other professionals (professionals i.e. Dr., PA, PICK UP AND DELIVERY DRIVER, lab, RT, psych nurse, social sciences professor, control room tender, teacher, public service officer, director of casework department)? Give summary @ -No Was smoking cessation discussed for >3mins.? @ -No Was critical care preformed (if so, how long)? @ -No Were there social determinants of health that impacted care today? How? (Homelessness, low income, unemployed, alcoholism, drug addiction, transportation, low edu. Level, literacy, decrease access to med. care, [facility]dc, rehab)? @ -No Was there de-escalation of care discussed even if they declined (Discuss DNR or withdrawal of care, Hospice)? DNR status @ -No What co-morbidities impacted this encounter? (DM, HTN, Smoking, COPD, CAD, Cancer, CVA, ARF, Chemo, Hep., AIDS, mental health diagnosis, sleep apnea, morbid obesity)? @ -None Was patient admitted / discharged? Hospital course, mention meds given and route, prescriptions, significant lab abnormalities, going to OR and other pertinent info. @ -[58-year-old male with right-sided rib pain after minor fall this occurred on Monday which is 2 days prior. No external signs of trauma on exam. Chest x- ray is unremarkable. Patient will take [id number] medication for symptom relief. Undiagnosed new problem with uncertain prognosis? @ -No Drug Therapy requiring intensive monitoring for toxicity (Heparin, Nitro, Insulin, Cardizem)? @ -No Were any procedures done? @ -No Diagnosis/symptom? @ -Rib contusion Acute, or Chronic, or Acute on Chronic? @Acute Uncomplicated (without systemic symptoms) or Complicated (systemic symptoms)? @ -Default Side effects of treatment? @ -No Exacerbation, Progression, or Severe Exacerbation? @ -No Poses a threat to life or bodily function? How? (Chest pain, [place], [place], pneumonia, PE, COPD, DKA, ARF, appy, cholecystitis, CVA, Diverticulitis, Homicidal, Suicidal, threat to staff... and all critical care pts) @ -No Disposition Clinical Impression: Rib contusion Disposition: HOME SELF-CARE Condition: Good Instructions (If sedation given, give patient instructions): Rib Contusion (ED) Is patient prescribed a controlled substance at d/c from ED?: No Referrals: Arlette Tena MD [Primary Care Provider] - 1-2 days Time of Disposition: 12:23
== END 2023-07-12 12:39 | disposition home or self-care (01) ==
LOC: EC 11:30
DX: S20.211A Contusion of right front wall of thorax, initial encounter (principal); I10 Essential (primary) hypertension; F17.200 Nicotine dependence, unspecified, uncomplicated; F41.9 Anxiety disorder, unspecified; F32.A Depression, unspecified; Z79.899 Other long term (current) drug therapy; W08.XXXA Fall from other furniture, initial encounter
CPT/HCPCS: 71046; 99283

== ENCOUNTER → 2023-07-21 | Outpatient (CLI) | payer BC ==
--- NOTE | 2023-07-21 10:31 | XR ---
EXAMINATION TYPE: XR chest 2V DATE OF EXAM: 07/21/2023 COMPARISON: 07/12/2023 HISTORY: 58-year-old male right-sided rib pain for a week, S29.9XXA UNSPECIFIED INJURY OF THORAX, INI TIAL ENC TECHNIQUE: Frontal and lateral views FINDINGS: The cardiomediastinal silhouette, aorta, and pulmonary vasculature are within normal limits. Lungs an d pleural spaces are clear. Bilateral nipple shadows, subtle on the left. IMPRESSION: No acute cardiopulmonary process.
== END | disposition home or self-care (01) ==
LOC: RADXRMAIN 09:59
PROVIDERS: ATTEND Internal Medicine
DX: S29.9XXA Unspecified injury of thorax, initial encounter (principal); I72.5 Aneurysm of other precerebral arteries; R42 Dizziness and giddiness
CPT/HCPCS: 71046

== ENCOUNTER → 2023-08-05 | Outpatient (CLI) | payer BC ==
--- NOTE | 2023-08-05 11:18 | MR ---
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 COMPARISON: 08/24/2021 TECHNIQUE: MRA brain: 3-D [id number] Axial with MIP and 3-D reconstruction performed on a separate workstati on. MRV of the brain: performed utilizing two-dimensional xlya-ys-iuxhqk technique MIP and 3-D reconstruc tion. Performed on a separate workstation. IV Contrast: cc (None if empty) Findings: Vertebral arteries: The left vertebral artery is patent and dominant. The right vertebral artery is d iminutive in its distal portion exiting C1.a Right vertebral artery was not in the webqo-um-jnun on p rior.. The left vertebral artery is dominant. Basilar artery: Similar morphology to the basilar tip with 2 mm dilation possibly representing a prom inent infundibulum with multiple branching vessels at this location. The basilar artery is intact. Th e basilar artery bifurcation is otherwise normal. Internal Carotid arteries: The cervical, petrous, cavernous and supraclinoid segments are normal. BG: Patent without evidence of aneurysm. ACOM: Patent without evidence of aneurysm. MCA: Patent without evidence of aneurysm. ELECTRICIAN YARD: Patent without evidence of aneurysm. origin of the posterior cerebral arteries bilaterally . PCOM: origins bilaterally. 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 There is no evidence of venous occlusion or collateral circulation. There is no evidence of sinus th rombosis. Dominant right and atrophic left transverse sinuses. IMPRESSION: 1. Stable morphology to the basilar tip with suspected dilation of the infundibulum versus small sac cular aneurysm. 2. Diminutive appearance of the distal portion of the right vertebral artery which is non the field- of-view on 08/24/2021. Consider CTA neck for complete evaluation of the vertebral arteries. 3. No evidence of venous sinus thrombosis. 4. No evidence of intracranial significant stenosis. 4. 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
== END | disposition home or self-care (01) ==
LOC: RADMRIMAIN 09:31
PROVIDERS: ATTEND Internal Medicine
DX: I72.6 Aneurysm of vertebral artery (principal); Q14.2 Congenital malformation of optic disc; R42 Dizziness and giddiness
CPT/HCPCS: 70544

== ENCOUNTER → 2023-09-08 | Outpatient (CLI) | payer BC ==
--- NOTE | 2023-09-09 14:46 | CTL ---
EXAMINATION TYPE: CT Low Dose Lung DATE OF EXAM ORDERED: 09/08/2023 HISTORY: 58-year-old male with Z1 2.2, lung cancer screening, F17.210. Lung cancer screening. Current smoker with a 25 pack-year history. CT DLP: 73.[address] CTDI: 1.9 mGy Automated exposure control for dose reduction was used. SCREENING VISIT: Baseline COMPARISON: None TECHNIQUE: Low dose computed tomography scan was performed through the chest with coronal and sagitta l reconstructions. CT DIAGNOSTIC QUALITY: Satisfactory FINDINGS: The heart is normal size without pericardial effusion. Three-vessel coronary calcifications are prese nt. Mild atherosclerotic arch calcifications with conventional arch vessel branching anatomy. No thoracic lymphadenopathy by CT size criteria. Some posterior groundglass and reticular change posterior right base of the right mid lung. Mild subp leural reticular change in the mid lungs, left greater than right. Mild emphysematous change is prese nt. No consolidation or pleural effusion. Tiny calcified granuloma medial left midlung, axial image 193. 4 mm left upper lobe pulmonary nodule, axial image 111. Adjacent 3 mm left upper lobe pulmonary nodule, axial image 106. Tiny hiatal hernia. Otherwise, visualized upper abdomen shows no gross abnormality. Bones: Moderate degenerative disc disease T7-T8. IMPRESSION: 1. LungRADS 2, benign. A few pulmonary nodules measuring up to 4 mm on baseline screening. 2. COPD with mild emphysema. Recommendations smoking cessation. 3. In addition, there are some scattered mild subpleural reticular and groundglass changes suggesting early interstitial fibrosis. 4. Extensive three-vessel coronary artery calcifications. 5. Tiny hiatal hernia. CT LUNG RAD AND CT CHEST RECOMMENDATION: Lung-Rad 2 Benign Appearance or Behavior: Continue annual sc reening with LDCT in 12 months. S Modifier (other clinically significant findings): None
== END | disposition home or self-care (01) ==
LOC: RADCTMAIN 15:14
PROVIDERS: ATTEND Internal Medicine
DX: Z12.2 Encounter for screening for malignant neoplasm of respiratory organs (principal); F17.210 Nicotine dependence, cigarettes, uncomplicated; J44.9 Chronic obstructive pulmonary disease, unspecified; J43.9 Emphysema, unspecified; I25.10 Atherosclerotic heart disease of native coronary artery without angina pectoris; K44.9 Diaphragmatic hernia without obstruction or gangrene
CPT/HCPCS: 71271

== ENCOUNTER → 2024-07-23 | Outpatient (CLI) | payer BC ==
[2024-07-23 14:36] VITALS: BP 138/77; PULSE 60; RESP 20; TEMP 97.9
--- NOTE | 2024-07-23 20:31 | P.SLEEP ---
History of Present Illness H&P Date: 07/23/24 Chief Complaint: KOFI This is a pleasant 59-year-old male patient, referred to me for sleep apnea evaluation. The patient states that he has been diagnosed having obstructive sleep apnea more than 15 years ago. He was using his CPAP successfully for many years and ultimately he started having some sinus problems and sinus infection and he thought that the source of infection was a CPAP machine and of quitting the treatment. Currently, he is coming back as his symptoms of tiredness and sleepiness has gotten worse. He is also having excessive dreams. No nightmares. He is waking up tired during the day. He is having night sweats. He is snoring. He wakes up frequently to urinate. No reported apneas during sleep. He goes to bed at around 9:30 PM and he gets out of bed at 4 AM in the morning. He has maintained the same schedule for many years. It takes him few minutes to fall asleep. His sleep remains fragmented as the patient wakes up somewhere between 2-4 times the middle of the night. He sleeps in different body positions and he does not have any preference. His current [place] score is at 15. He wakes up not refreshed and he feels 5 tired and fatigued throughout the day. No significant weight gain. He drinks beer, a total of 6 beers a day and his last bottle of beer is approximately 1 hour before he goes to bed. Is a chronic smoker and smokes 1 pack of cigarettes a day. He is known to have hypertension, hyperlipidemia. Vascular disease and he is on the job previous vascular intervention and stenting to his right lower extremity. He continues to have issues with claudication. No history of stroke. No history of any congestion heart failure, myocardial infarction or atrial fibrillation. Review of Systems Constitutional: Reports daytime sleepiness, Reports fatigue Eyes: denies as per HPI, denies blurred vision, denies bulging eye, denies decreased vision, denies diplopia, denies discharge, denies dry eye, denies irritation, denies itching, denies pain, denies photophobia, denies loss of peripheral vision, denies loss of vision, denies tunnel vision/blind spots Ears: deny: decreased hearing, ear discharge, earache, tinnitus Ears, nose, mouth and throat: Reports as per HPI Breasts: absent: as per HPI, gynecomastia Cardiovascular: Reports as per HPI, Reports claudication Respiratory: Reports sleep apnea, Reports snoring Gastrointestinal: Reports as per HPI Genitourinary: Reports as per HPI Musculoskeletal: Reports as per HPI Musculoskeletal: absent: ankle pain, ankle stiffness, ankle swelling, as per HPI, elbow pain, elbow stiffness, elbow swelling, foot pain, foot stiffness, foot swelling, hand pain, hand stiffness, hand swelling, hip pain, hip stiffness, hip swelling, knee pain, knee stiffness, knee swelling, shoulder pain, shoulder stiffness, shoulder swelling, wrist pain, wrist stiffness, wrist swelling Integumentary: Reports as per HPI Neurological: Reports as per HPI Psychiatric: Reports change in sleep habits, Reports hypersomnia, Reports sleep disturbances Endocrine: Reports as per HPI, Reports fatigue Hematologic/Lymphatic: Reports as per HPI Allergic/Immunologic: Reports as per HPI Past Medical History Past Medical History: Hyperlipidemia, Hypertension, Sleep Apnea/CPAP/BIPAP, Vascular Disorder (Claudication and previous vascular intervention and stenting into the right lower extremity) Additional Past Medical History / Comment(s): IRRITABLE BOWEL History of Any Multi-Drug Resistant Organisms: None Reported Past Surgical History: Orthopedic Surgery Additional Past Surgical History / Comment(s): left and right rotator cuff; rt leg stent Past Anesthesia/Blood Transfusion Reactions: No Reported Reaction Past Psychological History: Anxiety, Depression Smoking Status: Current every day smoker Past Alcohol Use History: Daily Additional Past Alcohol Use History / Comment(s): STARTED SMOKING AT AGE 16 SMOKES 1PPD Past Drug Use History: None Reported - Past Family History Mother Family Medical History: No Reported History Medications and Allergies Home Medications Medication Instructions Recorded Confirmed Type ALPRAZolam 0.5 mg PO TID PRN 01/30/15 07/23/24 History Atorvastatin [Lipitor] 20 mg PO HS 07/12/23 07/23/24 History Clopidogrel [Plavix] 75 mg PO HS 07/12/23 07/23/24 History Valsartan/Hydrochlorothiazide 1 tab PO DAILY 07/12/23 07/23/24 History [Valsartan-Hctz 80-12.5 mg Tab] Aspirin [Children's Aspirin] 81 mg PO DAILY 07/23/24 07/23/24 History Allergies Allergy/AdvReac Type Severity Reaction Status Date / Time No Known Allergies Allergy Verified 07/12/23 12:35 Physical Exam Vitals: Vital Signs Temp Pulse Resp BP Pulse Ox 07/23/24 14:34 97.9 F 60 20 138/77 95 The patient appeared well nourished and normally developed. Vital signs as documented. The patient has an [place] score of 15, body mass index is 25.7, weight is 150 pounds Head exam is unremarkable. No scleral icterus or corneal arcus noted. Neck is without jugular venous distension, thyromegaly, or carotid bruits. Carotid upstrokes are brisk bilaterally. Patient has a Mallampati class IV with crowding of the posterior pharynx. Lungs are clear to auscultation and percussion. Cardiac exam reveals the PMI to be normally sized and situated. Rhythm is regular. First and second heart sounds normal. No murmurs, rubs or gallops. Abdominal exam reveals normal bowel sounds, no masses, no organomegaly and no aortic enlargement. Extremities are nonedematous and both femoral and pedal pulses are normal. Examination of the skin revealed no evidence of significant rashes, suspicious appearing nevi or other concerning lesions. Neurologically, the patient is awake and alert and the patient does not have any focal neurological deficit. Cranial nerves are essentially intact. Assessment and Plan Plan: Obstructive sleep apnea, diagnosed and treated more than 15 years ago. Original polysomnography results are not available. The patient states that he utilized his machine for quite some time and ultimately he quit the treatment as he was having some issues with sinus infection and he thought that the machine was the source of the infection. Over the years, the patient's symptoms have gotten worse and the patient is having increased tiredness and sleepiness during the day and his current [place] score is at 15. Sleep is fragmented. He is having loud snoring. Of significance, is an increased amount of dreams with the patient encountering throughout the night. 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 Plan Will ask the patient to cut down his alcohol drinking and he was advised not to drink at least 3 hours prior to going to bed. Maintain good sleep hygiene measures Maintain regular sleep schedule Proceed with a screening for some laboratory to evaluate the presence of sleep apnea and will make further recommendations accordingly. Time with Patient: Greater than 30 Sleep Note - Sleep Data ESS Total: 15 - Sleep Note Sleep Note: Temperature: 97.9 F Pulse Rate: 60 Respiratory Rate: 20 Blood Pressure: 138/77 SpO2: 95 Height: Weight: BMI: Neck Circumference: 16
== END ==
LOC: 3 N SLEEP 13:35
PROVIDERS: ATTEND Internal Medicine Critical Care Medicine
DX: G47.33 Obstructive sleep apnea (adult) (pediatric) (principal); I10 Essential (primary) hypertension; E78.5 Hyperlipidemia, unspecified; I73.9 Peripheral vascular disease, unspecified; F17.210 Nicotine dependence, cigarettes, uncomplicated
CPT/HCPCS: 99202

== ENCOUNTER → 2024-08-09 | Outpatient (CLI) | payer BC ==
[~2024-08-09] MED LIST changes: -DEXAMETHASONE SOD PHOSPHATE 4 MG/ML 1 ML VIAL IV ONE; -LACTATED RINGERS 1,000 ML IV SCH; -MIDAZOLAM 2 MG/2 ML VIAL IV PRN; -ONDANSETRON 4 MG/2 ML VIAL IVP ONE; +REGADENOSON 0.4 MG/5 ML SYRINGE IV ONE; -SCOPOLAMINE 1.5MG/72HR PATCH TRANSDERM ONE
--- NOTE | 2024-08-09 11:58 | NM ---
EXAMINATION TYPE: NM stress cardiolite complete DATE OF EXAM: 08/09/2024 COMPARISON: Prior stress test 2019 CLINICAL INDICATION: Male, 59 years old with history of I25.10 ATHSCL HEART DISEASE; . History of hyp ercholesterolemia and tobacco use. History of hypertension. TECHNIQUE: After the intravenous administration of 10.0 mCi Tc 99m Sestamibi - Rest images obtained 45 minutes post injection. The patient exercised using a MADHAV protocol and 1 minute prior to peak exercise was injected with 26.3 mCi Tc 99m Sestamibi - Stress images obtained 55 minutes post injecti on. FINDINGS: Targeted heart rate was achieved during performance of the study. Review of stress and rest SPECT lazaro ges demonstrates no distinct perfusion abnormality. Gated analysis shows normal wall motion with an estimated left ventricular ejection fraction of 66 %. IMPRESSION: No scintigraphic evidence for reversible ischemia. No significant change from prior. [facility], , 08/09/2024 11:55 AM
--- NOTE | 2024-08-09 16:13 | CA ---
Lexiscan Nuclear Stress Test Report Name: Beto Brasher Exam Date: 08/09/2024 09:40 Exam Location: [place] Stress Ht (in): 65 Wt (lb): 150 BSA: 1.75 Ordering Phys: Arlette Tena MD Referring Phys: HERB, Technologist: LLOYD,, Age: 59 Gender: M : 1965 Procedure CPT: Indications: I25.10 Athscl heart disease ICD-10 Codes: Patient History: Palpitations and fatigue. Medications: Meds past 24 hrs: Pretest Chest Pain: STRESS TEST Lexiscan Protocol Exercise Duration (min:sec): 02:[address] Depressions (mm): Angina Score: Serna Score: Resting HR (bpm): 48 Peak HR (bpm): 90 Resting BP (mmHg): 124 / 73 Peak BP (mmHg): 141 / 71 MPHR: 161 Target HR: 137 % MPHR: 56 METS: 1.0 Total Dose: Peak Dose: Atropine: Double Product: 08103 BP Response: Stress Termination: INFUSION COMPLETE Stress Symptoms: NO SYMPTOMS Stress Summary: ECG ANALYSIS Resting ECG: Stress ECG: CONCLUSIONS Baseline EKG revealed normal sinus rhythm without significant ST and T wave changes. With Lexiscan administration heart rate went up from 50 to 90 bpm. The blood pressure changed from 124/73 to 141/71. Patient did not have any significant symptoms. EKG was unremarkable. This is an unremarkable Lexiscan stress test by EKG criteria. The nuclear scan results will be reported with radiologist Dr. Lane Suarez MD (Electronically Signed) Final Date: 09 August 2024 16:12
== END | disposition home or self-care (01) ==
LOC: RADNMMAIN 07:44
PROVIDERS: ATTEND Internal Medicine
DX: I25.10 Atherosclerotic heart disease of native coronary artery without angina pectoris (principal)
CPT/HCPCS: 93017; 78452; A9500

== ENCOUNTER → 2024-08-16 | Outpatient (CLI) | payer BC ==
--- NOTE | 2024-08-16 20:25 | MR ---
EXAMINATION TYPE: MR angio neck wo con DATE OF EXAM: 08/16/2024 6:39 PM COMPARISON: CT/MRI. 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 2-D and 3-D kdlf-xt-dglhyv imaging. 3-D reformatte d images and maximum intensity projection reformatted images were submitted for evaluation. IV Contrast: mL (None, if empty) FINDINGS: RIGHT CAROTID SYSTEM: The common carotid artery is patent. The carotid bifurcations that she no evide nce for hemodynamically significant stenosis. The internal carotid arteries patent. LEFT CAROTID SYSTEM: The common carotid artery is patent. The carotid bifurcations that she no evide nce for hemodynamically significant stenosis. The internal carotid arteries patent. The origins of the great vessels and vertebral arteries appear unremarkable. The left vertebral joanna ry is dominant. There is remains diminutive appearance of the right vertebral artery intracranial por tion with smaller caliber remainder of the artery. IMPRESSIONS: 1. No evidence of significant stenosis at the carotid bifurcations. The carotid and vertebral arterie s are patent. 2. No evidence aneurysm. 3. Similar smaller caliber right vertebral artery which is diminutive in the intracranial portion. [facility], , 08/16/2024 8:23 PM
--- NOTE | 2024-08-16 21:54 | MR ---
EXAMINATION TYPE: MR MRA/MRV head wo con DATE OF EXAM: 08/16/2024 6:34 PM COMPARISON: 08/05/2023. 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 MRV of the brain: performed utilizing two-dimensional ponf-uv-kphvzo technique MIP and 3-D reconstruc tion. Performed on a separate workstation. IV Contrast: mL (None, if empty) Findings: Vertebral arteries: The left vertebral artery is patent and dominant. The right vertebral artery evin ins similar and diminutive in its distal portion exiting C1. Right vertebral artery was not in the fi eld-of-view on prior. The left vertebral artery is dominant. Basilar artery: Redemonstration of similar morphology to the basilar tip with 2 mm dilation possibly representing a prominent infundibulum with multiple branching vessels at this location. The basilar a rtery is intact. The basilar artery bifurcation is otherwise normal. Internal Carotid arteries: The cervical, petrous, cavernous and supraclinoid segments are normal. BG: Patent without evidence of aneurysm. ACOM: Patent without evidence of aneurysm. MCA: Patent without evidence of aneurysm. 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 origin of the posterior cerebral arteries bilaterally . PCOM: origins bilaterally. 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 There is no evidence of venous occlusion or collateral circulation. There is no evidence of sinus th rombosis. Dominant right and atrophic left transverse sinuses. IMPRESSION: 1. Stable morphology to the basilar tip with suspected dilation of the infundibulum versus small sac cular aneurysm. 2. Similar diminutive appearance of the distal portion of the right vertebral artery which is non th e kcqln-pi-hifs on 08/24/2021. No evidence of venous sinus thrombosis. 3. No evidence of intracranial significant stenosis. 5. Similar Type III right internal auditory canal vascular loop. [facility], , 08/16/2024 9:51 PM
== END | disposition home or self-care (01) ==
LOC: RADMRIMAIN 17:39
PROVIDERS: ATTEND Internal Medicine
DX: I72.5 Aneurysm of other precerebral arteries (principal); Q14.2 Congenital malformation of optic disc
CPT/HCPCS: 70544; 70547

== ENCOUNTER → 2024-09-04 | Outpatient (CLI) | payer BC ==
--- NOTE | 2024-09-16 21:04 | P.PCN ---
Date of Procedure: 09/04/24 Operative Findings: Home sleep study evaluation Date of service is 09/04/2024 History This is a pleasant 59-year-old male patient, referred to me for sleep apnea evaluation. The patient states that he has been diagnosed having obstructive sleep apnea more than 15 years ago. He was using his CPAP successfully for many years and ultimately he started having some sinus problems and sinus infection and he thought that the source of infection was a CPAP machine and of quitting the treatment. Currently, he is coming back as his symptoms of tiredness and sleepiness has gotten worse. He is also having excessive dreams. No nightmares. He is waking up tired during the day. He is having night sweats. He is snoring. He wakes up frequently to urinate. No reported apneas during sleep. He goes to bed at around 9:30 PM and he gets out of bed at 4 AM in the morning. He has maintained the same schedule for many years. It takes him few minutes to fall asleep. His sleep remains fragmented as the patient wakes up somewhere between 2-4 times the middle of the night. He sleeps in different body positions and he does not have any preference. His current [place] score is at 15. He wakes up not refreshed and he feels 5 tired and fatigued throughout the day. No significant weight gain. He drinks beer, a total of 6 beers a day and his last bottle of beer is approximately 1 hour before he goes to bed. Is a chronic smoker and smokes 1 pack of cigarettes a day. He is known to have hypertension, hyperlipidemia. Vascular disease and he is on the job previous vascular intervention and stenting to his right lower extremity. He continues to have issues with claudication. No history of stroke. No history of any congestion heart failure, myocardial infarction or atrial fibrillation. Pertinent physical findings Body mass is 25.3, weight is 130 pounds, [place] score is 15/24 Technical description The [employer] system was used to complete his home sleep study. This is a type III home sleep study. The total recording duration was 7 hours and 47 minutes. The study started 8:32 PM and ended at 4:20 AM. There was a total of 7 hours and 36 minutes of flow monitoring and oxygen saturation monitoring and as such this is an adequate study. Respiratory analysis The sleep study showed a total of 1 obstructive apnea and 49 obstructive hypopneas. The resulting AHI was 6.6 Oxygenation analysis Baseline pulse ox is 94% on room air oxygen at rest. Average pulse ox was 91% and the minimum pulse ox was 84%. The patient spent only 15 minutes of the sleep time below pulse ox of 89% Cardiac summary The average heart rate was 70 with a minimum heart rate of 50 and a maximum heart of 106 Assessment Mild obstructive sleep apnea with an AHI of 6.6. Limited nocturnal oxygen desaturations. Previous history obstructive sleep apnea, diagnosed and treated more than 15 y ears ago. Original polysomnography results are not available. The patient states that he utilized his machine for quite some time and ultimately he quit the treatment as he was having some issues with sinus infection and he thought that the machine was the source of the infection. Over the years, the patient's symptoms have gotten worse and the patient is having increased tiredness and sleepiness during the day and his current [place] score is at 15. Sleep is fragmented. He is having loud snoring. Of significance, is an increased amount of dreams with the patient encountering throughout the night. 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 Plan The severity of the patient's sleep apnea is mild and in fact the home sleep study is not impressive and the patient symptoms are out of proportion to the severity of sleep apnea. I am going to discuss those findings with the patient. If CPAP therapy is being still contemplated by the patient we, the patient will be offered CPAP therapy, preferably an APAP machine pressures of 5/15 cm of water as long as the patient is willing to undertake the treatment. Will ask the patient to cut down his alcohol drinking and he was advised not to drink at least 3 hours prior to going to bed. Maintain good sleep hygiene measures Maintain regular sleep schedule Will continue to follow and make further recommendations after having discussion of the results with the patient.
== END ==
LOC: 3 N SLEEP 10:19
PROVIDERS: ATTEND Internal Medicine Critical Care Medicine
DX: G47.33 Obstructive sleep apnea (adult) (pediatric) (principal); I73.9 Peripheral vascular disease, unspecified; I10 Essential (primary) hypertension; E78.5 Hyperlipidemia, unspecified; F17.210 Nicotine dependence, cigarettes, uncomplicated; Z99.89 Dependence on other enabling machines and devices